=== PATIENT | male | born 1990 | race Caucasian/White ===

== ENCOUNTER 2019-10-31 15:36 | Emergency (ER) | payer OTHER ==
[~2019-10-31] VITALS: Ht 185.4 cm; Wt 90.7 kg
[~2019-10-31 15:36] MED LIST: BACLOFEN10 MG PO; METHYLPREDNISOLO4 M1 PO
[2019-10-31] MEDS ORDERED: INVEGA6 MG PO (15:45)
[2019-10-31] MEDS ORDERED: TRAZODONE HCL50 MG PO (15:45)
--- OUTSIDE RECORDS SUMMARY | 2019-10-31 15:50 | XMS ---
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 If you have your back to him it is easy for his auditory hallucinations to insist that you are talking negatively about him. He is more aware of these not being true if he can see your face at all times. Care Coordination: Jono\T\nbsp;is seen at [facility] by Ami Lara, if he is seen in the ED please notify clinician during business hours at [phone] so I can reach out and engage\T\nbsp;Jono in more\T\nbsp;services if needed. Other Information: Jono enjoys fishing, being outdoors, and has family in [place]. Care History Medical/Surgical 08/07/2018 [facility] WRONG PHONE NUMBER Please update patient phone number when seen. CHW needs to contact patient E.D. VISIT COUNT (12 MO.) 1 Killian Lugo. 1 [facility]. TOTAL 2 NOTE: Visits indicate total known visits. ED/C VISIT TRACKING (12 MO.) 10/31/2019 15:37 [facility] [place] TYPE: Emergency COMPLAINT: - SOB 04/05/2019 15:37 [facility] [place] TYPE: Emergency DIAGNOSES: - Hypothyroidism, unspecified - Suicidal ideations - suicidal - Suicidal Thoughts INPATIENT VISIT TRACKING (12 MO.) No inpatient visits to display in this time frame [email or web address]
--- NOTE | 2019-11-01 22:27 | EKG ---
[facility] [address] [facility] [address] [place] [address] Signed Sinus tachycardia Otherwise normal ECG No previous ECGs available Confirmed by BLANCA BRADFORD MD ([id number]) on 11/01/2019 10:27:24 PM Electronically Signed By: BLANCA BRADFORD MD 11/01/19 2227 PATIENT NAME: JONO MARION Electrocardiogram DATE OF : 89 PHYSICIAN: BLANCA BRADFORD MD REPORT #: [id number] REPORT IS CONFIDENTIAL AND NOT TO BE RELEASED WITHOUT AUTHORIZATION
== END 2019-10-31 17:31 | disposition home or self-care (01) ==
LOC: ED 15:36
DX: R07.89 Other chest pain (principal); F20.9 Schizophrenia, unspecified; F17.200 Nicotine dependence, unspecified, uncomplicated; Z79.899 Other long term (current) drug therapy
CPT/HCPCS: 71045; 80053; 83735; 84484; 85025; 85379; 93005; 93010; 99285-25

== ENCOUNTER 2020-02-26 17:36 | Emergency (ER) | payer OTHER ==
[~2020-02-26] VITALS: Ht 185.4 cm; Wt 90.7 kg
--- OUTSIDE RECORDS SUMMARY | ~2020-02-26 | XMS | Clinical Summary ---
Demographics + + + | Address | [address] | | | [place] [address] | + + + | Home Phone | | + + + | Preferred Language | Unknown | + + + | Marital Status | | + + + | Shinto Affiliation | Unknown | + + + | Race | Unknown | + + + | Ethnic Group | Unknown | + + + Author + + + | Author | [facility] | | | and [place] | + + + | Organization | [facility] | | | and [place] | + + + | Address | Unknown | + + + | Phone | Unavailable | + + + Support + + +---------+ + | Name | Relationship | Address | Phone | + + +---------+ + | Selene Johnson | ECON | Unknown | | + + +---------+ + Care Team Providers + +------+ + | Care Pediatrician Managing Partner Name | Role | Phone | + +------+ + | No, Physician | PCP | Unavailable | + +------+ + Allergies No Known Allergies Medications + + + +---------+------+------+-------+ | Medication | Sig | Dispensed | Refills | Star | End | Statu | | | | | | t | Date | s | | | | | | Date | | | + + + +---------+------+------+-------+ | ibuprofen | Take 1 tablet by | 30 | 0 | 05/1 | | Activ | | (ADVIL,MOTRIN) 800 | mouth every 8 hours | tablet | | 5/20 | | e | | MG tablet | as needed for Pain. | | | 18 | | | + + + +---------+------+------+-------+ Active Problems No known active problems Social History + +-------+ +--------+------+ | Tobacco Use | Types | Packs/Day | Years | Date | | | | | Used | | + +-------+ +--------+------+ | Current Some Day | | | | | | Smoker | | | | | + +-------+ +--------+------+ + +------+---+---+ | Smokeless Tobacco: | Chew | | | | Current User | | | | + +------+---+---+ + + +---------+ + | Alcohol Use | Drinks/Week | oz/Week | Comments | + + +---------+ + | No | | | | + + +---------+ + + + + | Sex Assigned at | Date Recorded | | | | + + + | Not on file | | + + + + + + + | Job Start Date | Occupation | Industry | + + + + | Not on file | Not on file | Not on file | + + + + + + + + | Travel History | Travel Start | Travel End | + + + + + + | No recent travel history available. | + + Last Filed Vital Signs + + + + + | Vital Sign | Reading | Time Taken | Comments | + + + + + | Blood Pressure | 129/78 | 04/05/2019 6:01 PM | | | | | PDT | | + + + + + | Pulse | 88 | 04/05/2019 6:01 PM | | | | | PDT | | + + + + + | Temperature | 36.6 C (97.9 F) | 04/05/2019 3:43 PM | | | | | PDT | | + + + + + | Respiratory Rate | 16 | 04/05/2019 6:01 PM | | | | | PDT | | + + + + + | Oxygen Saturation | 99% | 04/05/2019 6:01 PM | | | | | PDT | | + + + + + | Inhaled Oxygen | - | - | | | Concentration | | | | + + + + + | Weight | 81.6 kg (180 lb) | 04/05/2019 3:43 PM | | | | | PDT | | + + + + + | Height | 185.4 cm (6' 1") | 04/05/2019 3:43 PM | | | | | PDT | | + + + + + | Body Mass Index | 23.75 | 04/05/2019 3:43 PM | | | | | PDT | | + + + + + Plan of Treatment + + + + + | Health Maintenance | Due Date | Last Done | Comments | + + + + + | Vaccine: | | | | | Pneumococcal 19-64 | 7 | | | | (1 of 1 - PPSV23) | | | | + + + + + | Vaccine: | | | | | Dtap/Tdap/Td (1 - | 2 | | | | Tdap) | | | | + + + + + | Vaccine: Influenza | | | | | (Season Ended) | 0 | | | + + + + + Results Not on filefrom Last 3 Months Insurance + +--------+ +--------+ +---------+--------+ | Payer | Benefi | Subscriber | Effect | Phone | Address | Type | | | t Plan | ID | perry | | | | | | / | | Dates | | | | | | Group | | | | | | + +--------+ +--------+ +---------+--------+ | [employer]ICAID | AMERIG | [id number] | | | | Medica | | HMO | ROUP | | 017-Pr | | | id | | | APPLE | | esent | | | | | | [place]ALTH | | | | | | | | [place] | | | | | | + +--------+ +--------+ +---------+--------+ | [employer] | MODA | [id number] | | [phone] | | Medica | | MEDICAID HMO | HEALTH | | 019-Pr | 1 | | id | | | MDCD | | esent | | | | | [place] | | | | | | + +--------+ +--------+ +---------+--------+ + +--------+ +--------+ + + | Guarantor Name | Accoun | Relation to | Date | Phone | Billing Address | | | t Type | Patient | of | | | | | | | | | | + +--------+ +--------+ + + | Misael Johnson | Person | Self | [birth year] | [address] | | Jonathan | al/Fam | | 1989 | -- | [place] [address] | | | ileana | | | 0 (Home) | | + +--------+ +--------+ + + | Misael Johnson | Person | Self | [birth year] | [address] | | Jnoathan | al/Fam | | 1989 | [phone] | [place] [address] | | | ileana | | | 0 (Home) | | + +--------+ +--------+ + + Advance Directives + + + + + | Type | Date Recorded | Patient | Explanation | | | | Payroll Auditor | | + + + + + | Power of | | | | | Project Crew Worker | | | | + + + + + | Advance | 01/30/2018 6:27 | | | | Directive | PM | | | + + + + +
--- OUTSIDE RECORDS SUMMARY | ~2020-02-26 | XMS | Encounter Summary ---
Demographics + + + | Address | [address] | | | [place] [address] | + + + | Home Phone | | + + + | Preferred Language | Unknown | + + + | Marital Status | | + + + | Lutheran Affiliation | Unknown | + + + | Race | Unknown | + + + | Ethnic Group | Unknown | + + + Author + + + | Author | [facility] | | | and [place] | + + + | Organization | [facility] | | | [...] Team Providers + +------+ + | Care Poacher Operator Name | Role | Phone | + +------+ + | No, Physician | PCP | Unavailable | + +------+ + Reason for Visit + + + | Reason | Comments | + + + | Headache (Adult - | | | New Onset Or New | | | Symptoms) | | + + + | Cough | | + + + | Chest Pain | | + + + Encounter Details +--------+ + + + + | Date | Type | Department | Care Team | Description | +--------+ + + + + | 02/08/ | Emergency | [facility] | Kristie Gr | Dental disorder | | 2018 | | [facility] | C, 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 | + + documented as of this encounter Last Filed Vital Signs + + + + + | Vital Sign | Reading | Time Taken | Comments | + + + + + | Blood Pressure | 136/75 | 02/08/2018 6:27 PM | | | | | PDT | | + + + + + | Pulse | 84 | 02/08/2018 6:27 PM | | | | | PDT | | + + + + + | Temperature | 36.1 C (97 F) | 02/08/2018 5:31 PM | | | | | PDT | | + + + + + | Respiratory Rate | 16 | 02/08/2018 6:27 PM | | | | | PDT | | + + + + + | Oxygen Saturation | 99% | 02/08/2018 6:27 PM | | | | | PDT | | + + + + + | Inhaled Oxygen | - | - | | | Concentration | | | | + + + + + | Weight | 92.1 kg (203 lb) | 02/08/2018 5:31 PM | | | | | PDT | | + + + + + | Height | 193 cm (6' 4") | 02/08/2018 5:31 PM | | | | | PDT | | + + + + + | Body Mass Index | 24.71 | 02/08/2018 5:31 PM | | | | | PDT | | + + + + + documented in this encounter Discharge Instructions Instructions Kristie Gr ARNP - 02/08/2018-Take all prescribed medications as direc ciro. Suggested setting alarm to make sure you take this medication every 6 hours. -Make a dental appointment for definitive solution to dental pain. Your pain may dissipate temporarily but will likely recur if you do not see a dentist as discussed. -Good oral care: use toothpaste for sensitive teeth, rinse mouth 3-4 times daily with mouth wash mixed 50/50 with hydrogen peroxide. You can also try warm salt water rinses. Make amanda e to complete these rinses several times per day. Use tylenol 1000 mg 3x a day (Max 4000mg/day) AND Ibuprofen 800 mg 3x a day (max 2400mg/day ) as needed for pain (unless contraindicated such as if or taking anticoagulants). If you have a dental injection todayDo not eat solids until the numbing medication wears of f in 4-6 hours. Avoid very hot or cold fluids and foods. Seek care immediately for difficu lty breathing or swallowing, fever or other concerning symptoms. DO NOT TAKE ibuprofen if you are , breast-feeding, have HX ulcers/reflux, kidney fa ilure, GI bleeds, take anticoagulants or other contraindications exist. documented in this encounter Medications at Time of Discharge + + + +---------+ + + | Medication | Sig | Dispensed | Refills | Start | End Date | | | | | | Date | | + + + +---------+ + + | ibuprofen | Take 1 tablet by | 30 | 0 | 05/15/20 | | | (ADVIL,MOTRIN) 800 | mouth every 8 hours | tablet | | 18 | | | MG tablet | as needed for Pain. | | | | | + + + +---------+ + + documented as of this encounter Plan of Treatment Not on filedocumented as of this encounter Visit Diagnoses + + | Diagnosis | + + | Dental disorder - Primary Unspecified disorder of the teeth and supporting structures | + + documented in this encounter Administered Medications + +--------+---------+------+------+------+ | Medication Order | MAR | Action | Dose | Rate | Site | | | Action | Date | | | | + +--------+---------+------+------+------+ + +---+ | ketorolac (TORADOL) 60 mg/2 mL | | | injection Starting 02/08/18 | | | at 1747, For 1 dose, ANASTACIA, | | | CAM Murray: kirstin brooks, | | + +---+ | | | + +---+ + +-------+ +-------+---+ + | ketorolac (TORADOL) injection | Given | 02/09/20 | 60 mg | | Ventrogl | | 60 mg 60 mg, Intramuscular, | | 18 5:52 | | | uteal-Le | | ONCE, Tue02/08/18 at 1815, For 1 | | PM PDT | | | ft | | dose | | | | | | + +-------+ +-------+---+ + +---+---+ | | | +---+---+ + +-------+ + +---+ + | penicillin G benzathine | Given | 02/09/20 | 1.2 | | Ventrogl | | (BICILLIN L-A) injection 1.2 | | 18 5:52 | Million | | uteal-Le | | Million Units 1.2 Million Units, | | PM PDT | Units | | ft | | Intramuscular, ONCE, Tue02/08/18 | | | | | | | at 1815, For 1 dose, Keep in | | | | | | | refrigerator., Indications: | | | | | | | Dental infection | | | | | | + +-------+ + +---+ + +---+---+ | | | +---+---+ documented in this encounter
--- OUTSIDE RECORDS SUMMARY | ~2020-02-26 | XMS | Encounter Summary ---
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
--- OUTSIDE RECORDS SUMMARY | ~2020-02-26 | XMS | Encounter Summary ---
Demographics + + + | Address | [address] | | | [place] [address] | + + + | Home Phone | | + + + | Preferred Language | Unknown | + + + | Marital Status | | + + + | Anabaptist Affiliation | Unknown | + + + | Race | Unknown | + + + | Ethnic Group | Unknown | + + + Author + + + | Author | [facility] | | | and [place] | + + + | Organization | [facility] | | | and [...] Team Providers + +------+ + | Care Machine Sizer Name | Role | Phone | + +------+ + | No, Physician | PCP | Unavailable | + +------+ + Reason for Visit + + + | Reason | Comments | + + + | Dental Pain | | + + + Encounter Details +--------+ + + + + | Date | Type | Department | Care Team | Description | +--------+ + + + + | 01/30/ | Emergency | [facility] | Carito Abdullahi, | Dental abscess | | 2018 | | HOSPITAL EM[facility]Y | 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 [address] | (Primary Dx) | | | | CENTER [address] | [place] | | | | | [place], [place] | [address] | | | | | [address] | | | | | | [phone] | | | +--------+ + + + [...] + + + | Blood Pressure | 145/83 | 01/30/2018 5:30 PM | | | | | PDT | | + + + + + | Pulse | 78 | 01/30/2018 6:39 PM | | | | | PDT | | + + + + + | Temperature | 36.8 C (98.2 F) | 01/30/2018 5:30 PM | | | | | PDT | | + + + + + | Respiratory Rate | 18 | 01/30/2018 6:39 PM | | | | | PDT | | + + + + + | Oxygen Saturation | 99% | 01/30/2018 6:39 PM | | | | | PDT | | + + + + + | Inhaled Oxygen | - | - | | | Concentration | | | | + + + + + | Weight | 81.6 kg (180 lb) | 01/30/2018 5:30 PM | | | | | PDT | | + + + + + | Height | 190.5 cm (6' 3") | 01/30/2018 5:30 PM | | | | | PDT | | + + + + + | Body Mass Index | 22.5 | 01/30/2018 5:30 PM | | | | | PDT | | + + + + + documented in this encounter Discharge Instructions AttachmentsThe following attachments cannot be sent through Care Everywhere.Abscess, Antibi otic Treatment Only (Togolese)documented in this encounter Medications at Time of Discharge + + + +---------+ + + | Medication | Sig | Dispensed | Refills | Start | End Date | | | | | | Date | | + + + +---------+ + + | | Take 1 tablet by | 5 | 0 | 01/31/20 | | | HYDROcodone-acetamin | mouth every 6 hours | tablet | | 18 | 8 | | ophen (NORCO) 5-325 | as needed for Pain. | | | | | | mg per tablet | | | | | | + + + +---------+ + + | | Take 1 tablet by | 14 | 0 | 01/31/20 | | | sulfamethoxazole-tri | mouth 2 times daily | tablet | | 18 | 8 | | methoprim (BACTRIM | for 7 days. | | | | | | DS) 800-160 mg per | | | | | | | tablet | | | | | | + + + +---------+ + + documented as of this encounter Plan of Treatment Not on filedocumented as of this encounter Visit Diagnoses + + | Diagnosis | + + | Dental abscess - Primary Periapical abscess without sinus | + + documented in this encounter
--- OUTSIDE RECORDS SUMMARY | ~2020-02-26 | XMS | Encounter Summary ---
Demographics + + + | Address | [address] | | | [place] [address] | + + + | Home Phone | | + + + | Preferred Language | Unknown | + + + | Marital Status | | + + + | Sikh Affiliation | Unknown | + + + | Race | Unknown | + + + | Ethnic Group | Unknown | + + + Author + + + | Author | [facility] | | | and [place] | + + + | Organization | [facility] | | | [...] Team Providers + +------+ + | Care Metrology Engineer Name | Role | Phone | + +------+ + | No, Physician | PCP | Unavailable | + +------+ + Reason for Visit + + + | Reason | Comments | + + + | Dental Pain | Room 2: abcess right upper molar x 2 mo. getting worse, seen in | | | ED last week, given antibiotics-still taking | + + + Encounter Details +--------+---------+ + + + | Date | Type | Department | Care Team | Description | +--------+---------+ + + + | 02/07/ | Office | [facility] | Ananth, | Dental infection | | 2018 | Visit | [facility] [address] | Joshua Potts MD | (Primary Dx) | | | | [place], [place] | [address] | | | | | [address] | [place], [place] | | | | | [phone] | [address] | | | | | | | | +--------+---------+ + + + Social History + +-------+ [...] + + + | Blood Pressure | 135/76 | 02/07/2018 3:30 PM | | | | | PDT | | + + + + + | Pulse | 95 | 02/07/2018 3:30 PM | | | | | PDT | | + + + + + | Temperature | 37.6 C (99.7 F) | 02/07/2018 3:30 PM | | | | | PDT | | + + + + + | Respiratory Rate | 18 | 02/07/2018 3:30 PM | | | | | PDT | | + + + + + | Oxygen Saturation | 98% | 02/07/2018 3:30 PM | | | | | PDT | | + + + + + | Inhaled Oxygen | - | - | | | Concentration | | | | + + + + + | Weight | 92.4 kg (203 lb 11.3 | 02/07/2018 3:30 PM | | | | oz) | PDT | | + + + + + | Height | 190.5 cm (6' 3") | 02/07/2018 3:30 PM | | | | | PDT | | + + + + + | Body Mass Index | 25.46 | 02/07/2018 3:30 PM | | | | | PDT | | + + + + + documented in this encounter Patient Instructions Patient Instructions Joshua Wadsworth MD - 02/07/2018 3:30 PM PDT Dental Abscess An abscess is a pocket of pus at the tip of a tooth root in your jaw bone. It is caused by an infection at the root of the tooth. It can cause pain and swelling of the gum, cheek, or jaw. Pain may spread from the tooth to your ear or the area of your jaw on the same side. If the abscess isn t treated, it appears as a bubble or swelling on the gum near the tooth. The pressure that builds in this swelling is the source of the pain. More serious infections cause your face to swell. An abscess can be caused by a crack in the tooth, a cavity, a gum infection, or a combinati on of these. Once the pulp of the tooth is exposed, bacteria can spread down the roots to th e tip. If the bacteria are not stopped, they can damage the bone and soft tissue, and an abs cess can form. Home care Follow these guidelines when caring for yourself at home: Don't have hot and cold foods and drinks. Your tooth may be sensitive to changes in temp erature. Don t chew on the side of the infected tooth. If your tooth is chipped or cracked, or if there is a large open cavity, put oil of clov es directly on the tooth to relieve pain. You can buy oil of cloves at drugstores. Some phar ashley carry an baun-mks-ejquhnc "toothache kit." This contains a paste that you can put on the exposed tooth to make it less sensitive. Put a cold pack on your jaw over the sore area to help reduce pain. You may use jvye-knv-tjlmilk medicine to ease pain, unless another medicine was prescrib ed. If you have chronic liver or kidney disease, talk with your healthcare provider before u sing acetaminophen or ibuprofen. Also talk with your provider if you ve had a stomach ulce r or GI bleeding. An antibiotic will be prescribed. Take it until finished, even if you are feeling better after a few days. Follow-up care Follow up with your dentist or an oral surgeon, or as advised. Once an infection occurs in a tooth, it will continue to be a problem until the infection is drained. This is done throu gh surgery or a root canal. Or you may need to have your tooth pulled. Call 911 Call 911 if any of these occur: Unusual drowsiness Headache or stiff neck Weakness or fainting Difficulty swallowing, breathing, or opening your mouth Swollen eyelids When to seek medical advice Call your healthcare provider right away if any of these occur: Your face becomes more swollen or red Pain gets worse or spreads to your neck Fever of 100.4 F (38.0 C) or higher, or as directed by your healthcare provider Pus drains from the tooth Date Last Reviewed: 06/26/[id number] [employer]. [address] [place] [address], [place] [address]. All righ ts reserved. This information is not intended as a substitute for professional medical care. Always follow your healthcare professional's instructions. GO GET SOME WHOLE CLOVES AT THE [employer] AT THE [facility]. THEY ARE GOOD TO REDUCE D ENTAL PAIN documented in this encounter Progress Notes Joshua Wadsworth MD - 02/07/2018 3:30 PM PDTFormatting of this note might be di fferent from the original. Subjective: Chief Complaint: Dental Pain (Room 2: abcess right upper molar x 2 mo. getting worse, seen in ED last week, given antibiotics-still taking) Misael is a 27 y.o. male who comes in complaining of dental pain. HPI this 27-year-old was seen 8 days ago in [place] ER for dental pain. He was given 7 day prescription for Septra and that seemed to help with pain after about 24 hours. He miss ed one days worth of medicine and he still has a few tablets left but pain seemed to recur a fter he missed his doses. Her says he has had fever the last 24 hours. The swellin g is not as bad as it was 8 days ago. He has several teeth that are infected or and are bro danielito. He thought that this was a dental clinic here and so came here today. He does not hav e an appointment with a dentist yet but is actively trying to get one Patient's medications, allergies, past medical, surgical, social and family histories were reviewed and updated as appropriate. ROS See above Objective: BP 135/76 | Pulse 95 | Temp 37.6 C (99.7 F) (Temporal) | Resp 18 | Ht 1.905 m (6' 3 ") | Wt 92.4 kg (203 lb 11.3 oz) | SpO2 98% | BMI 25.46 kg/m Physical Exam This is a well-developed well-nourished appearing male in no distress. Vital signs are not ed. Tooth #2 is significantly decayed. There is no swelling or active discharge from the upper maxillary teeth. He has some tenderness to pressure over the gums and cheek in that area. Assessment and Plans: 1. Dental infection Renewed his Septra. I sent ibuprofen for pain relief. He continues whole clothes parked a longside the affected tooth as well for pain relief. He will need to see a dentist as soon as possible. This note was dictated using [employer] voice recognition software. Occasional wrong- word or s ound-alike substitutions may have occurred due to the inherent limitations of voice recognit ion software. Please read the chart carefully and recognize, using context, where these subs titutions have occurred. Electronically signed by Joshua Wadsworth MD at 8 3:53 PM PDTdocumented in this encounter Plan of Treatment Not on filedocumented as of this encounter Visit Diagnoses + + | Diagnosis | + + | Dental infection - Primary Acute apical periodontitis of pulpal origin | + + documented in this encounter
--- OUTSIDE RECORDS SUMMARY | ~2020-02-26 | XMS | Encounter Summary ---
Demographics + + + | Address | [address] | | | [place] [address] | + + + | Home Phone | | + + + | Preferred Language | Unknown | + + + | Marital Status | | + + + | Caodaism Affiliation | Unknown | + + + | Race | Unknown | + + + | Ethnic Group | Unknown | + + + Author + + + | Author | [facility] | | | and [place] | + + + | Organization | [facility] | | | [...] Team Providers + +------+ + | Care Strap Maker Name | Role | Phone | + +------+ + | No, Physician | PCP | Unavailable | + +------+ + Reason for Visit + + + | Reason | Comments | + + + | Suicidal Thoughts | | + + + Encounter Details +--------+ + + + + | Date | Type | Department | Care Team | Description | +--------+ + + + + | 04/05/ | Emergency | [facility] | Shahab Ceballos, | Suicidal ideation | | 2019 | | [facility] | [facility] [address] | (Primary Dx); | | | | CENTER [address] | [place] | Hypothyroidism, | | | | [place] | [address] | unspecified type | | | | [address] | | | | | | [phone] | | | +--------+ + + + [...] + + + | Blood Pressure | 143/89 | 04/05/2019 3:43 PM | | | | | PDT | | + + + + + | Pulse | 111 | 04/05/2019 3:43 PM | | | | | PDT | | + + + + + | Temperature | 36.6 C (97.9 F) | 04/05/2019 3:43 PM | | | | | PDT | | + + + + + | Respiratory Rate | 18 | 04/05/2019 3:43 PM | | | | | PDT | | + + + + + | Oxygen Saturation | 98% | 04/05/2019 3:43 PM | | | [...] documented in this encounter Discharge Instructions Instructions Shahab Ceballos NP - 04/05/2019Follow [facility] Your lab test today indicate you have hypothyroidism. Establish with a local care provider to discuss treatment option. AttachmentsThe following attachments cannot be sent through Care Everywhere.Hypothyroidism ([place]oz[place])Suicide, Warning Signs and What You Can Do ([place]ican)documented in this encounter Medications at Time of Discharge + + + +---------+ + + | Medication | Sig | Dispensed | Refills | Start | End Date | | | | | | Date | | + + + +---------+ + + | ibuprofen | Take 1 tablet by | 30 | 0 | 02/08/20 | | | (ADVIL,MOTRIN) 800 | mouth every 8 hours | tablet | | 18 | | | MG tablet | as needed for Pain. | | | | | + + + +---------+ + + documented as of this encounter Plan of Treatment + +------+--------+ + + | Name | Type | Priori | Associated Diagnoses | Date/Time | | | | ty | | | + +------+--------+ + + | ED INFORMATION | DEBBIE | Routin | | 04/05/2019 3:38 PM | | EXCHANGE | | e | | PDT | + +------+--------+ + + documented as of this encounter Procedures + +--------+ + + + | Procedure Name | Priori | Date/Time | Associated Diagnosis | Comments | | | ty | | | | + +--------+ + + + | URINALYSIS WITH | STAT | 04/05/2019 | | Results for this | | MICROSCOPIC WITH | | 5:00 PM | | procedure are in the | | CULTURE IF INDICATED | | PDT | | results section. | + +--------+ + + + | CBC WITH | STAT | 04/05/2019 | | Results for this | | DIFFERENTIAL | | 3:48 PM | | procedure are in the | | | | PDT | | results section. | + +--------+ + + + | TSH | STAT | 04/05/2019 | | Results for this | | | | 3:48 PM | | procedure are in the | | | | PDT | | results section. | + +--------+ + + + | ALCOHOL | STAT | 04/05/2019 | | Results for this | | | | 3:48 PM | | procedure are in the | | | | PDT | | results section. | + +--------+ + + + | ACETAMINOPHEN LEVEL | STAT | 04/05/2019 | | Results for this | | | | 3:48 PM | | procedure are in the | | | | PDT | | results section. | + +--------+ + + + | SALICYLATE LEVEL | STAT | 04/05/2019 | | Results for this | | | | 3:48 PM | | procedure are in the | | | | PDT | | results section. | + +--------+ + + + | COMPREHENSIVE | STAT | 04/05/2019 | | Results for this | | METABOLIC PANEL | | 3:48 PM | | procedure are in the | | | | PDT | | results section. | + +--------+ + + + | T4, FREE | Add-On | 04/05/2019 | | Results for this | | | | 3:40 PM | | procedure are in the | | | | PDT | | results section. | + +--------+ + + + | ED INFORMATION | Routin | 04/05/2019 | | | | EXCHANGE | e | 3:38 PM | | | | | | PDT | | | + +--------+ + + + +---+--------+ | | | | | Proced | | | ure | | | Note - | | | Tita, | | | Lab In | | | | | | Hlseve | | | n - | | | | | | 2018 | | | 3:39 | | | PM PDT | | | | | | Format | | | ting | | | of | | | this | | | note | | | might | | | be | | | differ | | | ent | | | from | | | the | | | origin | | | al.COL | | | LECTIV | | | E?NOTI | | | FICATI | | | ON?07/ | | | 11/201 | | | 9 | | | 15:37? | | | HAGEDO | | | RN, | | | JONO | | | | | | J?MRN: | | | | | | [id number] | | | [id number] | | | riteri | | | a Met | | | Has | | | Care | | | Guidel | | | inesSe | | | curity | | | and | | | Safety | | | No | | | recent | | | | | | Securi | | | ty | | | Events | | | | | | curren | | | tly on | | | | | | fileED | | | Care | | | Guidel | | | inesTh | | | ere | | | are | | | curren | | | tly no | | | ED | | | Care | | | Guidel | | | savanah | | | for | | | this | | | patien | | | t. | | | Please | | | check | | | your | | | facili | | | ty's | | | medica | | | l | | | record | | | s | | | system | | | .Care | | | Histor | | | yMedic | | | al/Vivian | | | [email or web address] | | | 1/12/1 | | | 8 | | | 12:00 | | | AM | | | [facility] [place] [facility] | | [facility] | | | al | | | WRONG | | | PHONE | | | NUMBER | | | | | | Please | | | | | | update | | | | | | patien | | | t | | | phone | | | number | | | when | | | seen. | | | [facility] | | | needs | | | to | | | contac | | | t | | | patien | | | tPr | | | escrip | | | tion | | | Drug | | | Report | | | (12 | | | Mo.)PD | | | MP | | | query | | | found | | | no | | | report | | | .E.D. | | | Visit | | | Count | | | (12 | | | mo.)Fa | | | cility | | | | | | Visits | | | | | | [facility] | | | al 1 | | | [facility] [place] [facility] | [facility] y | | | [facility] | | | al 1 | | | Total | | | 2 | | | Note: | | | Visits | | | | | | indica | | | te | | | total | | | known | | | visits | | | . | | | Recent | | | | | | Emerge | | | ncy | | | Depart | | | ment | | | Visit | | | [facility] | | | yDate | | | Facili | | | ty | | | City | | | State | | | Type | | | Diagno | | | ses or | | | Chief | | | | | | Compla | | | int | | | Myron | | | 11, | | | 2019 | | | [facility] | | [facility] [place] | [place] | | | Emerge | | | ncy | | | | | | suicid | | | al | | | Nov | | | 11, | | | 2018 | | | [facility] [place] | | | [facility] | | | [place] | | | [place] | | | Emerge | | | ncy | | | Low | | | back | | | pain | | | | | | Chest | | | pain, | | | unspec | | | ified | | | | | | Nicoti | | | ne | | | depend | | | ence, | | | unspec | | | ified, | | | | | | uncomp | | | licate | | | d | | | Recent | | | | | | Inpati | | | ent | | | Visit | | | [facility] | | | yNo | | | record | | | ed | | | inpati | | | ent | | | visits | | | . Care | | | | | | TeamPr | | | ovider | | | PRC | | | Type | | | Phone | | | Fax | | | Servic | | | e | | | Dates | | | [facility] | | | [facility] | | | [facility] | | | | | | [facility] | | | L | | | [facility] | | | AL | | | Primar | | | y Care | | | | | | Curren | | | t | | | [facility] | | | [facility] | | | PACIFI | | | C | | | COMMUN | | | ITIES | | | [facility]OSP[facility] | | | AL | | | Primar | | | y Care | | | | | | Curren | | | t | | | RICHARD | | | , | | | MELIZA | | | S J. | | | Primar | | | y Care | | | ([phone]) | | | | | | [phone] | | | [phone] | | | [phone] | | | [phone] | | | 71 Aug | | | 13, | | | 2012 - | | | | | | Curren | | | t | | | Col[facility] | | | tive | | | Portal | | | This | | | patien | | | t has | | | regist | | | ered | | | at the | | | | | | [facility] | | | al | | | Emerge | | | ncy | | | Depart | | | ment | | | For | | | more | | | inform | | | ation | | | visit: | | | | | | https: | | | //secu | | | [email or web address] | | | ecarep | | | [email or web address] | | | m/morgan | | | ent/63 | | | [id number] | | | [phone] | | | [id number] | | | [id number] | | | [id number] | | | [id number] | | | PLEASE | | | NOTE: | | | 1. | | | Any | | | care | | | recomm | | | endati | | | ons | | | and | | | other | | | clinic | | | al | | | inform | | | ation | | | are | | | provid | | | ed as | | | guidel | | | savanah | | | or for | | | | | | histor | | | ical | | | purpos | | | es | | | only, | | | and | | | provid | | | ers | | | should | | | | | | exerci | | | se | | | their | | | own | | | clinic | | | al | | | judgme | | | nt | | | when | | | provid | | | ing | | | care. | | | 2. | | | You | | | may | | | only | | | use | | | this | | | inform | | | ation | | | for | | | purpos | | | es of | | | treatm | | | ent, | | | paymen | | | t or | | | health | | | care | | | operat | | | ions | | | activi | | | ties, | | | and | | | subjec | | | t to | | | the | | | limita | | | tions | | | of | | | applic | | | able | | | Collec | | | tive | | | Polici | | | es. | | | 3. | | | You | | | should | | | | | | consul | | | t | | | direct | | | ly | | | with | | | the | | | organi | | | zation | | | that | | | provid | | | ed a | | | care | | | guidel | | | ine or | | | other | | | | | | clinic | | | al | | | histor | | | y with | | | any | | | questi | | | ons | | | about | | | additi | | | onal | | | inform | | | ation | | | or | | | accura | | | cy or | | | comple | | | teness | | | of | | | inform | | | ation | | | provid | | | ed.? | | | 2019 | | | [facility] | | | tive | | | Medica | | | l | | | Techn[employer] | | | logies | | | , Inc[employer] | | | - | | | [email or web address] | | | llecti | | | vemedi | | | [email or web address] | | | m | +---+--------+ documented in this encounter Results Urinalysis with Microscopic with Culture if Indicated (04/05/2019 5:00 PM PDT) + + + + + + | Component | Value | Ref Range | Performed | Pathologist | | | | | At | Signature | + + + + + + | Color, | Yellow | Pale Yellow, | [facility] | | | Urine | | Yellow | [facility] | | | | | | [facility] | | + + + + + + | Clarity | Clear | Clear | [facility] | | | | | | [facility] | | [facility] | [facility] | | + + + + + + | pH, Urine | 6.0 | 5.0 - 7.0 | [facility] | | | | | | [facility] | | | | | | [facility] | | + + + + + + | Specific | 1.010 | 1.003 - 1.030 | [facility] | | | [place], | | | [facility] | | | Urine | | | [facility] | | | | | | [facility] | | + + + + + + | Protein, | Negative | Negative | [facility] | | | Urine | | | [facility] | | [facility] | | | | | | [facility] | | + + + + + + | Blood, | 50 margret/uL (A) | Negative | [facility] | | | Urine | | | [facility] | [facility] | | | | | | [facility] | | + + + + + + | Glucose, | Normal | Normal | [facility] | | | Urine | | | [facility] | [facility] | [facility] | | | | | | [facility] | | + + + + + + | Ketones, | Negative | Negative | [facility] | | | Urine | | | [facility] | [facility] | | | | | | [facility] | | + + + + + + | Bilirubin, | Negative | Negative | [facility] | | | Urine | | | [facility] | | | | | | [facility] | | + + + + + + | Nitrite, | Negative | Negative | [facility] | | | Urine | | | [facility] | [facility] | | [facility] | | | | | | [facility] | | + + + + + + | Leukocyte | Negative | Negative | [facility] | | | Esterase, | | | [facility] | | | Urine | | | [facility] | | | | | | [facility] | | + + + + + + | Urobilinoge | Normal | 0-1.0 mg/dL | [facility] | | | n, Urine | | | [facility] | | | | [facility] | | | | | | [facility] | | + + + + + + | White Blood | 0-2 | <=5 /HPF | [facility] | | | Cells, | | | [facility] | | | Urine | | | [facility] | | | | | | [facility] | | + + + + + + | Red Blood | 0-2 | <=5 /HPF | [facility] | | | Cells, | | | [facility] | | | Urine | | | [facility] | | | | | | [facility] | | + + + + + + | Squamous | None Seen | None Seen /LPF | [facility] | | | Epithelial | | | [facility] | | | Cells, | | | [facility]OSP[facility] | | | Urine | | | LABORATORY | | + + + + + + | Bacteria, | None Seen | None Seen /HPF | [facility] | | | Urine | | | [facility] | [facility] | | | | | | [facility] | | + + + + + + | Granular | Trace (A) | None Seen /LPF | [facility] | | | Casts, | | | [facility] | | | Urine | | | [facility] | | | | | | [facility] | | + + + + + + | Urine | Urine Culture Not | | [facility] | | | Comment | Indicated | | [facility] | | | | | | [facility] | | + + + + + + + + | Specimen | + + | Urine - Urine | | specimen obtained by | | clean catch | | procedure (specimen) | + + + + + + + | Performing | Address | City/State/Zipcode | Phone Number | | Organization | | | | + + + + + | [facility] | [address] | [place] | [phone] | | [facility] | | [address] | | + + + + + TSH (04/05/2019 3:48 PM PDT) + + + + + + | Component | Value | Ref Range | Performed | Pathologist | | | | | At | Signature | + + + + + + | TSH | 6.87 (H) | 0.36 - 3.74 | [facility] | | | | | uIU/mL | [facility] | | | | | | [facility] | | + + + + + + + + | Specimen | + + | Blood | + + + + + + + | Performing | Address | City/State/Zipcode | Phone Number | | Organization | | | | + + + + + | [facility] | [address] | [place] | [phone] | | [facility] | | [address] | | + + + + + Salicylate Level (04/05/2019 3:48 PM PDT) + +-------+ + + + | Component | Value | Ref Range | Performed | Pathologist | | | | | At | Signature | + +-------+ + + + | Salicylate | 3.2 | 3.0 - 20.0 | [facility] | | | Level | | mg/dL | [facility] | [facility] | | | | | | [facility] | | + +-------+ + + + + + | Specimen | + + | Blood | + + + + + + + | Performing | Address | City/State/Zipcode | Phone Number | | Organization | | | | + + + + + | [facility] | [address] | [place] | [phone] | | [facility] | | [address] | | + + + + + Ethanol (04/05/2019 3:48 PM PDT) + +-------+ + + + | Component | Value | Ref Range | Performed | Pathologist | | | | | At | Signature | + +-------+ + + + | ALCOHOL, | <3 | 0 - 10 mg/dL | [facility] | | | SERUM/PLASM | | | [facility] | | | A | | | [facility] | | | | | | [facility]AT[facility] | | + +-------+ + + + + + | Specimen | + + | Blood | + + + + + + + | Performing | Address | City/State/Zipcode | Phone Number | | Organization | | | | + + + + + | [facility] | [address] | [place] | [phone] | | [facility] | | [address] | | + + + + + Acetaminophen Level (04/05/2019 3:48 PM PDT) + +---------+ + + + | Component | Value | Ref Range | Performed | Pathologist | | | | | At | Signature | + +---------+ + + + | Acetaminoph | <=2 (L) | 10 - 20 ug/mL | [facility] | | | en Level | | | [facility] | [facility] | | | | | | [facility] | | + +---------+ + + + + + | Specimen | + + | Blood | + + + + + | Narrative | Performed At | + + + | THERAPEUTIC 10.0-20.0 ug/mL POSSIBLE HEPATIC DAMAGE > 150.0 ug/mL | [facility] | | POTENTIALLY TOXIC > 200.0 ug/mL | HOSP[facility] | | | LAB[facility]AT[facility] | + + + + + + + + | Performing | Address | City/State/Zipcode | Phone Number | | Organization | | | | + + + + + | [facility] | [address] | [place] | [phone] | | [facility] | | [address] | | + + + + + Comprehensive Metabolic Panel (04/05/2019 3:48 PM PDT) + + + + + + | Component | Value | Ref Range | Performed | Pathologist | | | | | At | Signature | + + + + + + | Na | 140 | 132 - 143 | [facility] | | | | | mmol/L | [facility] | [facility] | | | | | | [facility] | | + + + + + + | K | 4.0 | 3.3 - 4.9 | [facility] | | | | | mmol/L | [facility] | | | | | | [facility] | | + + + + + + | Cl | 103 | 95 - 108 mmol/L | [facility] | | | | | | [facility] | | | | | | [facility] | | + + + + + + | CO2 | 30 | 23 - 34 mmol/L | [facility] | | | | | | [facility] | | | | | | [facility] | | + + + + + + | Anion Gap | 7 | 7 - 16 mmol/L | [facility] | | | | | | [facility] | | | | | | [facility] | | + + + + + + | Glucose | 111 (H) | 70 - 110 mg/dL | [facility] | | | | | | [facility] | [facility] | | | | | | [facility] | | + + + + + + | BUN | 15 | 5 - 26 mg/dL | [facility] | | | | | | [facility] | | | | | | [facility] | | + + + + + + | Creatinine | 1.01 | 0.70 - 1.40 | [facility] | | | | | mg/dL | [facility] | | | | | | [facility] | | + + + + + + | eGFR if not | >60Comment: GLOMERULAR | >=60 | [facility] | | | | FILTRATION | mL/min/1.73m2 | [facility] | | | COMORAN | RATE,ESTIMATED | | [facility]OSPITAL | | | | mL/min/1.41o3Mdyl than | | LABORATORY | | | | 60 Chronic kidney | | | | | | disease,if found over a | | | | | | 3-month period.Less than | | | | | | 15 Kidney failureFor | | | | | | | | | | | | Americans,multiply the | | | | | | calculated GFR by 1.21. | | | | | | | | | | + + + + + + | Calcium | 9.8 | 8.3 - 10.0 | [facility] | | | | | mg/dL | [facility] | | | | | | [facility] | | + + + + + + | Albumin | 4.4 | 3.0 - 4.5 g/dL | [facility] | | | | | | [facility] | | | | | | [facility] | | + + + + + + | Bilirubin | 0.4 | 0.0 - 1.2 mg/dL | [facility] | | | Total | | | [facility] | [facility] | | | | | | [facility] | | + + + + + + | Total | 7.6 | 6.6 - 8.5 g/dL | [facility] | | | Protein | | | [facility] | | | | [facility] | | | | | | [facility] | | + + + + + + | AST | 24 | 0 - 38 U/L | [facility] | | | | | | [facility] | | | | | | [facility] | | + + + + + + | ALT | 57 | 16 - 63 U/L | [facility] | | | | | | [facility] | | | | | | [facility] | | + + + + + + | Alkaline | 84 | 46 - 116 U/L | [facility] | | | Phosphatase | | | [facility] | | | | | | [facility] | | + + + + + + | Globulin | 3.2 | 2.4 - 4.5 g/dL | [facility] | | | | | | [facility] | [facility] | | | | | | [facility] | | + + + + + + | Albumin/Fany | 1.4 | 0.8 - 2.0 | [facility] | | | bulin Ratio | | | [facility] | [facility] | | | | | | [facility] | | + + + + + + | BUN/Creatin | 14.9 | 7.0 - 24.0 | [facility] | | | ine Ratio | | | [facility] | [facility] | | | | | | [facility] | | + + + + + + + + | Specimen | + + | Blood | + + + + + + + | Performing | Address | City/State/Zipcode | Phone Number | | Organization | | | | + + + + + | [facility] | [address] | [place] | [phone] | | [facility] | | [address] | | + + + + + CBC with Differential (04/05/2019 3:48 PM PDT) + + + + + + | Component | Value | Ref Range | Performed | Pathologist | | | | | At | Signature | + + + + + + | WBC | 10.1 | 4.6 - 10.5 K/uL | [facility] | | | | | | [facility] | | | | | | [facility] | | + + + + + + | RBC | 5.19 | 4.36 - 5.83 | [facility] | | | | | M/uL | [facility] | | | | | | [facility] | | + + + + + + | Hemoglobin | 16.3 | 13.1 - 17.4 | [facility] | | | | | g/dL | [facility] | | | | | | [facility] | | + + + + + + | Hematocrit | 48.0 | 39.0 - 51.9 % | [facility] | | | | | | [facility] | | | | | | [facility] | | + + + + + + | MCV | 92.5 | 82.0 - 96.0 fL | [facility] | | | | | | [facility] | | | | | | [facility] | | + + + + + + | MCH | 31.4 | 27.7 - 32.3 pg | [facility] | | | | | | [facility] | | | | | | [facility] | | + + + + + + | MCHC | 34.0 | 32.0 - 36.9 | [facility] | | | | | g/dL | [facility] | | | | | | [facility] | | + + + + + + | RDW-CV | 12.6 | 0.0 - 17.0 % | [facility] | | | | | | [facility] | | | | | | [facility] | | + + + + + + | Platelet | 285 | 150 - 450 K/uL | [facility] | | | Count | | | [facility] | | | | | | [facility] | | + + + + + + | MPV | 10.7 | 9.4 - 12.4 fL | [facility] | | | | | | [facility] | | | | | | [facility] | | + + + + + + | % | 69.3 | 42.0 - 76.0 % | [facility] | | | Neutrophils | | | [facility] | | | | | | [facility] | | + + + + + + | % | 20.4 | 20.0 - 40.0 % | [facility] | | | Lymphocytes | | | [facility] | | | | | | [facility] | | + + + + + + | % Monocytes | 8.2 | 3.0 - 13.0 % | [facility] | | | | | | [facility] | | | | | | [facility] | | + + + + + + | % | 0.8 | 0.0 - 7.0 % | [facility] | | | Eosinophils | | | [facility] | | | | | | [facility] | | + + + + + + | % Basophils | 0.9 | 0.0 - 2.0 % | [facility] | | | | | | [facility] | | | | | | [facility] | | + + + + + + | % Immature | 0.4 | 0.0 - 0.5 % | [facility] | | | Granulocyte | | | [facility] | | | s | | | [facility] | | | | | | [facility]ORY | | + + + + + + | Absolute | 6.98 | 2.80 - 7.70 | [facility] | | | Neutrophils | | K/uL | [facility] | | | | | | LABORATORY | | + + + + + + | Absolute | 2.05 | 1.20 - 3.30 | [facility] | | | Lymphocytes | | K/uL | [facility] | | | | | | LAB[facility]ATORY | | + + + + + + | Absolute | 0.83 (H) | 0.00 - 0.80 | [facility] | | | Monocytes | | K/uL | [facility] | | | | | | LABORATORY | | + + + + + + | Absolute | 0.08 | 0.00 - 0.70 | [facility] | | | Eosinophils | | K/uL | [facility] | | | | | | LABORATORY | | + + + + + + | Absolute | 0.09 | 0.00 - 0.20 | [facility] | | | Basophils | | K/uL | [facility] | | | | | | LAB[facility]ATORY | | + + + + + + | Absolute | 0.04 | 0.00 - 0.15 | [facility] | | | Immature | | K/uL | [facility] | | | Granulocyte | | | [facility] | | | s | | | LABORATORY | | + + + + + + | % nRBC | 0 | <=0 per 100 | [facility] | | | | | WBCs | [facility] | | | | | | LABORATORY | | + + + + + + | Absolute | 0.00 | 0.00 - 0.01 | [facility] | | | nRBC | | K/uL | [facility] | | | | | | LABORATORY | | + + + + + + + + | Specimen | + + | Blood | + + + + + + + | Performing | Address | City/State/Zipcode | Phone Number | | Organization | | | | + + + + + | [facility] | [address] | [place] | [phone] | | [facility] | | [address] | | + + + + + T4, Free (04/05/2019 3:40 PM PDT) + +---------+ + + + | Component | Value | Ref Range | Performed | Pathologist | | | | | At | Signature | + +---------+ + + + | FT4 | 0.7 (L) | 0.8 - 1.5 ng/dL | [facility] | | | | | [facility] | [facility] | | | | | | [facility] | | + +---------+ + + + + + | Specimen | + + | Blood | + + + + + + + | Performing | Address | City/State/Zipcode | Phone Number | | Organization | | | | + + + + + | [facility] | [address] | [place] | [phone] | | [facility] | | [address] | | + + + + + documented in this encounter Visit Diagnoses + + | Diagnosis | + + | Suicidal ideation - Primary | + + | Hypothyroidism, unspecified type | + + documented in this encounter
--- OUTSIDE RECORDS SUMMARY | ~2020-02-26 | XMS | Encounter Summary ---
Demographics + + + | Address | [address] | | | [place] [address] | + + + | Home Phone | | + + + | Preferred Language | Unknown | + + + | Marital Status | | + + + | Caodaism Affiliation | Unknown | + + + | Race | Unknown | + + + | Ethnic Group | Unknown | + + + Author + + + | Author | [facility] | | | and [place] | + + + | Organization | [facility] | | | [...] Team Providers + +------+ + | Care Fern Gatherer Name | Role | Phone | + [...] + + | 02/07/ | Office | [facility] | Ananth, | Dental infection | | 2018 | Visit | [facility] [address] | Joshua Potts MD | (Primary Dx) | | | | [place] | [address] | | | | | [address] | [place], [place] | | | | | [phone] | [address] | | | | | | | [...] at drugstores. Some phar ashley carry an mdzr-rdu-cxplnex "toothache kit." This contains a paste that you can put on the exposed tooth to make it less sensitive. Put a cold pack on your jaw over the sore area to help reduce pain. You may use dgmd-hid-qnelyjx medicine to ease pain, unless another medicine [...] drains from the tooth Date Last Reviewed: 06/26/[id number] [employer]. [address] [place] [address], [place] [address]. All righ ts reserved. This information is [...] 27-year-old was seen 8 days ago in [facility] for dental pain. He was given [...] as possible. This note was dictated using [employer] voice recognition software. Occasional wrong- word or [...]
--- OUTSIDE RECORDS SUMMARY | ~2020-02-26 | XMS | Clinical Summary ---
Demographics + + + | Address | [address] | | | [place] [address] | + + + | Home Phone | | + + + | Preferred Language | Unknown | + + + | Marital Status | | + + + | Rastafari Affiliation | Unknown | + + + | Race | Unknown | + + + | Ethnic Group | Unknown | + + + Author + + + | Author | [facility] | | | and Edeana | + + + | Organization | [facility] | | [...] Team Providers + +------+ + | Care Filter Worker Name | Role | Phone | + [...] +---------+--------+ | [employer] | AMERIG | [id number] | | | | Medica | | HMO | ROUP | | [id number] | | | id | | | APPLE | | esent | | | | | | HEALTH | | | | | | | | [place] | | | | | | + +--------+ +--------+ +---------+--------+ | [employer] | MODA | [id number] | | [phone] | | Medica | | MEDICAID HMO [...] | 1989 | -- | [place] [address] | | | ileana | | | 0 (Home) | | + +--------+ +--------+ + + | Misael Johnson | Person | Self | [birth year] | [address] | | Jonathan | al/Fam | | 1989 | [id number] | [place] [address] | | | ileana | | | 0 (Home) | | + +--------+ +--------+ + + Advance Directives + + + + + | Type | Date Recorded | Patient | Explanation | | | | 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
--- OUTSIDE RECORDS SUMMARY | ~2020-02-26 | XMS | Encounter Summary ---
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
--- OUTSIDE RECORDS SUMMARY | ~2020-02-26 | XMS | Encounter Summary ---
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 Your lab test today indicate you have [...] J?MRN: | | | | | | [id number] | | | [id number] | | | riteri | | | [...] | | | St. | | | [place] | | | y | | | [...] | | | St. | | | [place] | | | y | | | [...] | | | St. | | | [place] | | | y H. | | [...] | | | ent/63 | | | [id number] | | | -[id number] | | | [id number] | | | [id number] | | | [id number] | | | [id number] | | | [...] - 1.030 | [facility] | | | [place], | | | RONDE | | | [...] | 50 margret/uL (A) | Negative | [place] | | | Urine | | | [...] + + | BRUNILDA RONDAMON | [address] | [place] | [phone] | | HOSPITAL LAB[facility]ORY | | [address] | | + + + + + [...] + + | BRUNILDA RONDAMON | [address] | [place], [place] | [phone] | | HOSPITAL LABORATORY | | [address] | | + + + + + [...] + + | BRUNILDA RONDAMON | [address] | [place] | [phone] | | HOSPITAL LAB[facility]ATORY | | [address] | | + + + + + [...] + + | BRUNILDA RONDE | [address] | [place] | [phone] | | HOSPITAL LAB[facility]ORY | | [address] | | + + + + + [...] + + | BRUNILDA RONDE | [address] | [place] | [phone] | | HOSPITAL LAB[facility]ORY | | [address] | | + + + + + [...] | mL/min/1.73m2 | [facility] | | | [place]ER | RATE,ESTIMATED | | HOSPITAL | | | | mL/min/1.50u2Ssfs than | | LABORATORY | | | [...] + + | BRUNILDA RONDE | [address] | [place] | [phone] | | HOSPITAL LAB[facility]ATORY | | [address] | | + + + + + [...] 48.0 | 39.0 - 51.9 % | [place] | | | | | | RONDE [...] + + | BRUNILDA RONDE | [address] | [place] | [phone] | | HOSPITAL LAB[facility]ATORY | | [address] | | + + + + + [...] + + | BRUNILDA NEWMAN | [address] | [place] | [phone] | | HOSPITAL LAB[facility]ORY | | [address] | | + + + + + documented in this encounter Visit Diagnoses + + | Diagnosis | + + | Suicidal ideation - Primary | + + | Hypothyroidism, unspecified type | + + documented in this encounter
[~2020-02-26 17:36] MED LIST changes: +INVEGA6 MG PO; +TRAZODONE HCL50 MG PO
--- OUTSIDE RECORDS SUMMARY | 2020-02-26 17:40 | XMS ---
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 Guidelines Source: [facility] Guidelines [...] all times. Care Coordination: Jono\T\nbsp;is seen at [facility] by Ami Lara, if he is seen in the ED please notify clinician during business hours at [phone] so I can reach out and engage\T\nbsp;Jono in more\T\nbsp;services if needed. Other Information: Jono enjoys fishing, being outdoors, and has family in [place]. Care History Medical/Surgical 08/07/2018 [facility] WRONG PHONE NUMBER Please update patient phone number when seen. CHW needs to contact patient E.D. VISIT COUNT (12 MO.) 1 Killian Lugo. 2 [facility]. TOTAL 3 NOTE: Visits indicate total known visits. ED/UCC VISIT TRACKING (12 MO.) 02/26/2020 17:37 [facility] [place] TYPE: Emergency COMPLAINT: - SUCIDAL IDEATION 10/31/2019 15:37 [facility] [place] TYPE: Emergency COMPLAINT: - SOB DIAGNOSES: - Other chest pain - Schizophrenia, unspecified - Shortness of breath - Nicotine dependence, unspecified, uncomplicated - Other [facility] (current) drug therapy 04/05/2019 15:37 [facility] [place] TYPE: Emergency DIAGNOSES: - Hypothyroidism, unspecified - Suicidal ideations - suicidal - Suicidal Thoughts INPATIENT VISIT TRACKING (12 MO.) No inpatient visits to display in this time frame [email or web address]
== END 2020-02-26 19:51 | disposition home or self-care (01) ==
LOC: ED 17:36
DX: R45.851 Suicidal ideations (principal); F17.200 Nicotine dependence, unspecified, uncomplicated; Z79.899 Other long term (current) drug therapy
CPT/HCPCS: 80053; 80176; 84443; 85025; 99284; G0480

== ENCOUNTER 2021-04-19 19:20 | Emergency (ER) | payer OTHER ==
[~2021-04-19] VITALS: Ht 185.4 cm; Wt 90.7 kg
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
[2021-04-19] MEDS ORDERED: ZYPREXA10 MG PO (19:35)
[2021-04-19] MEDS ORDERED: HYDROCODON-ACE1 EA10 PO ×2 (20:10→20:20)
== END 2021-04-19 20:31 | disposition home or self-care (01) ==
LOC: ED 19:20
DX: T21.22XA Burn of second degree of abdominal wall, initial encounter (principal); T31.0 Burns involving less than 10% of body surface; X12.XXXA Contact with other hot fluids, initial encounter; F17.200 Nicotine dependence, unspecified, uncomplicated; Z79.899 Other long term (current) drug therapy
CPT/HCPCS: 16020; 90471; 90714; 99283-25

== ENCOUNTER 2021-10-15 22:42 | Emergency (ER) | payer OTHER ==
[~2021-10-15] VITALS: Ht 190.5 cm; Wt 113.4 kg
[~2021-10-15 22:42] MED LIST changes: +HYDROCODON-ACE1 EA10 PO; +ZYPREXA10 MG PO
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
== END 2021-10-16 01:24 | disposition home or self-care (01) ==
LOC: ED 22:42
DX: S60.221A Contusion of right hand, initial encounter (principal); F17.200 Nicotine dependence, unspecified, uncomplicated; Z79.899 Other long term (current) drug therapy; W22.8XXA Striking against or struck by other objects, initial encounter
CPT/HCPCS: 73130; 99283-25

== ENCOUNTER 2023-04-04 18:54 | Emergency (ER) | payer OTHER ==
[~2023-04-04] VITALS: Ht 190.5 cm; Wt 95.2 kg
[~2023-04-04 18:54] MED LIST changes: +LATUDA120 MG PO
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
[2023-04-04] MEDS ORDERED: CEPHALEXIN500 MG PO (20:01)
[2023-04-04 20:26] VITALS: BP 133/74
== END 2023-04-04 20:27 | disposition home or self-care (01) ==
LOC: ED 18:54
DX: S61.243A Puncture wound with foreign body of left middle finger without damage to nail, initial encounter (principal); F17.200 Nicotine dependence, unspecified, uncomplicated; W26.8XXA Contact with other sharp object(s), not elsewhere classified, initial encounter; W45.8XXA Other foreign body or object entering through skin, initial encounter
CPT/HCPCS: 64450; 73140; 99283 25; A9270

== ENCOUNTER 2025-01-17 01:42 | Emergency (ER) | payer OTHER ==
[~2025-01-17] VITALS: Ht 190.5 cm; Wt 110.0 kg
[~2025-01-17 01:42] MED LIST changes: +CEPHALEXIN500 MG PO
[2025-01-17] MEDS ORDERED: CEPHALEXIN500 M1 PO (01:54)
[2025-01-17] MEDS ORDERED: HYDROCODON-ACE1 EA10 PO (01:54)
[2025-01-17] MEDS ORDERED: CEPHALEXIN MONOHYDRATE 500 MG HOME.PACK PO ONE (02:00)
[2025-01-17] MEDS ORDERED: HYDROCODONE/ACETA 5/325 TAB PO ONE (02:00)
[2025-01-17] MEDS ORDERED: HYDROCODONE BIT/ACETAMINOPHEN 5/325 MG 1 TAB HOME.PACK PO ONE (02:00)
[2025-01-17 02:09] VITALS: BP 149/104
== END 2025-01-17 02:11 | disposition home or self-care (01) ==
LOC: ED 01:42
DX: K04.7 Periapical abscess without sinus (principal); F17.200 Nicotine dependence, unspecified, uncomplicated
CPT/HCPCS: 99282; A9270

== ENCOUNTER 2025-07-29 06:05 | Emergency (ER) | payer OTHER ==
[~2025-07-29] VITALS: Ht 190.5 cm; Wt 83.7 kg
[~2025-07-29 06:05] MED LIST changes: +CEPHALEXIN500 M1 PO
[2025-07-29] MEDS ORDERED: HYDROmorphone HCL 1 MG/ML SYR IV PRN (06:15)
[2025-07-29] MEDS ORDERED: LACTATED RINGER'S 1,000 ML IV ONE (06:15)
[2025-07-29 07:02] LABS: ALT (SGPT) 25.0 U/L (14-59); AST (SGOT) 11.0 U/L (15-37); GLOMERULAR FILTRATION RATE,EST 117.0 mL/min (>60); PROTEIN, TOTAL 6.2 g/dL (6.4-8.2); UREA NITROGEN 13.0 mg/dL (7-18)
[2025-07-29 07:14] LABS: BASOPHILS 1.4 % (0.2-1.2); EOSINOPHILS 1.8 % (0.8-7.0); LYMPHOCYTES 28.3 % (21.8-53.1); MCH 30.9 PG (25.7-32.2); MCHC 33.3 g/dL (32.3-36.5); MCV 92.7 fL (79.0-92.2); MONOCYTES 8.0 % (5.3-12.2); NEUTROPHILS 60.3 % (34.0-67.9); RBC 4.40 M/uL (4.63-6.08)
[2025-07-29] MEDS ORDERED: SILVER SULFADIAZINE 400 GM HOME.PACK TOP ONE (07:45)
[2025-07-29] MEDS ORDERED: OXYCODONE/ACETAMINOPHEN 1 TAB HOME.PACK PO ONE (07:45)
[2025-07-29] MEDS ORDERED: DIPHTH,PERTUSS(ACELL),TET VAC 0.5 ML SYRINGE IM ONE (07:45)
[2025-07-29] MEDS ORDERED: PERCOCET 5-3251 EACH PO (08:11)
[2025-07-29] MEDS ORDERED: HYDROmorphone HCL 1 MG/ML SYR IM ONE (09:30)
[2025-07-29 10:38] VITALS: BP 119/76
== END 2025-07-29 10:38 | disposition home or self-care (01) ==
LOC: ED 06:05
PROVIDERS: Family Medicine
DX: T21.23XA Burn of second degree of upper back, initial encounter (principal); T23.252A Burn of second degree of left palm, initial encounter; T23.251A Burn of second degree of right palm, initial encounter; F17.200 Nicotine dependence, unspecified, uncomplicated; X19.XXXA Contact with other heat and hot substances, initial encounter; Y93.84 Activity, sleeping
CPT/HCPCS: 36415; 80053; 82550; 85025; 90471; 90715; 96372; 96374; 96376; 99283-25; J1171; J7121